=== PATIENT | male | born 1960 | race Caucasian/White ===

== ENCOUNTER → 2017-02-19 | Outpatient (REF) | payer BC | LOC: M SFHCCLAY 08:35 | PROVIDERS: ATTEND Family Medicine | DX: E78.5 Hyperlipidemia, unspecified (principal) ==

== ENCOUNTER → 2018-02-19 | Outpatient (REF) | payer BC ==
[2018-02-19 12:14] LABS: ALBUMIN 4.2 GM/DL (3.2-5.2); ALT/SGPT 41 U/L (12-78); BILIRUBIN,TOTAL 0.6 MG/DL (0.2-1.0); BLOOD UREA NITROGEN 10 MG/DL (7-18); CALCIUM LEVEL 9.1 MG/DL (8.5-10.1); CARBON DIOXIDE LEVEL 32 MEQ/L (21-32); CHLORIDE LEVEL 98 MEQ/L (98-107); CHOLESTEROL LEVEL 242 MG/DL (<200); GLOMERULAR FILTRATION RATE > 60.0 (>56); GLUCOSE, FASTING 89 MG/DL (70-100); HDL CHOLESTEROL 84 MG/DL (>40); LDL CHOLESTEROL 137 MG/DL (<100); NON-HDL-C 158 MG/DL; POTASSIUM SERUM 4.1 MEQ/L (3.5-5.1); SODIUM LEVEL 137 MEQ/L (136-145); TOTAL PROTEIN 7.9 GM/DL (6.4-8.2); TRIGLYCERIDES LEVEL 103 MG/DL (<150)
[2018-02-19 12:24] LABS: THYROID STIMULATING HORMONE 3.5 uIU/ML (0.358-3.740); THYROXINE (T4) 6.3 UG/DL (4.5-12.0); TOTAL T3 92.4 NG/DL (60.0-181.0)
== END ==
LOC: M SFHCCLAY 08:22
PROVIDERS: ATTEND Family Medicine
DX: E78.5 Hyperlipidemia, unspecified (principal); I48.1 Persistent atrial fibrillation

== ENCOUNTER 2018-05-29 08:05 | Outpatient (RCR) | payer BC ==
[2018-05-29] MEDS ORDERED: DRENAMIN PO (08:36)
[2018-05-29] MEDS ORDERED: CRES10TA32 PO (08:36)
[2018-05-29] MEDS ORDERED: CODCAP4 PO (08:36)
[2018-05-29] MEDS ORDERED: [UNRECOGNIZED DRUG - OTHER] PO (08:36)
[2018-05-29] MEDS ORDERED: [UNRECOGNIZED DRUG - OTHER] PO (08:36)
[2018-05-29] MEDS ORDERED: METO37.5 PO (08:36)
[2018-05-29] MEDS ORDERED: LEVO25TA5 PO (08:36)
[2018-05-29] MEDS ORDERED: PROB250C PO (08:36)
[2018-05-29] MEDS ORDERED: ELIQ5TAB PO (08:36)
[2018-05-29] MEDS ORDERED: RAMI1CAP21 PO (08:36)
[2018-05-29] MEDS ORDERED: ASPI81TA85 PO (08:36)
[2018-05-29] MEDS ORDERED: [UNRECOGNIZED DRUG - OTHER] PO (08:36)
[2018-05-29] MEDS ORDERED: CLAR10CA3 PO (08:36)
[2018-05-29] MEDS ORDERED: cataplex PO (08:36)
[2018-05-29] MEDS ORDERED: CO Q10CA PO (08:36)
--- NOTE | 2018-05-29 10:34 | CARECAPL ---
Assessment Account #s: Initial Assessment General Diagnoses: CHF (cardiomyopathy EF 25%) Date of event: May 01, 2018 Physician: RITO ALTAMIRANO MD Date Entered Program: May 29, 2018 Risk strat for cardiac event: High Exercise Date: May 29, 2018 Assessment: Initial Assessment Exercise Prescription Plan to build endurance through a monitored exercise program and to educate to reduce the risks of cardiac disease Modalities initiated: Treadmill (1.3/RPE 2 MTS1.99), Nustep (L2 mts 3.2 RPE 2.), Arm Aerometer (1.0 MTS 2.82 RPE 2), Dumbells (will add), Recumbent Bike (R1 mts 3.2 RPE 2.5) Frequency: 3 Duration (Minutes) 30-60 minutes total exercise a day.6-10 work intervals in minutes. as needed - rest intervals in minutes. Functional Capacity Goal Sustained Metabolic Equivalent of a task (MET) goal of 4.5-5.5 for 15-20 minut es. Intensity: 2-Slight Progression (METS) Increase by: .5 METS every: 2 sessions Angina with ex: No Target Heart Rate r+35-40 Resistance Training: Yes Hypertension: Yes Hypertension controlled with: Diet Resting 130/75 Peak Exercise BP 170/100 Meds see below Medications Scheduled Apixaban Base (Eliquis), 5 MG PO BID, (Reported) Aspirin (Aspir-81), 1 TAB PO DAILY, (Reported) Cod Liver Oil (Cod Liver Oil), 1 CAP PO DAILY, (Reported) Coenzyme Q10 (Co Q 10), 1 CAP PO DAILY, (Reported) Levothyroxine Sodium (Synthroid), 25 MCG PO DAILY, (Reported) Loratadine (Claritin), 1 CAP PO DAILY, (Reported) Metoprolol Tartrate (Metoprolol Tartrate), 25 MG PO BID, (Reported) Ramipril (Ramipril), 2.5 MG PO DAILY, (Reported) Rosuvastatin (Crestor), 10 MG PO DAILY, (Reported) Yeast (S. Boulardii)(S. Cerevi (Probiotic), 1 CAP PO DAILY, (Reported) [AF Beta], 1 TAB PO DAILY, (Reported) [Carbo G], 1 TAB PO DAILY, (Reported) [Drenamin], 1 TAB PO DAILY, (Reported) [Echenacea], 1 TAB PO DAILY, (Reported) [cataplex], 1 TAB PO DAILY, (Reported) Target Goals Individual exercise Rx (1) BP 140/90 or 130/80 if DM or CKD (1) Aerobic active 30+min 5 days per week (1) Nutrition Date: May 29, 2018 Assessment: Initial Assessment Med Change: No Diabetes Diabetes: No Weight Management Weight (lbs): 188.8 Height (inches): 71 Waist Circumference (Inches): 41 BMI: 26.2 Special Diet: other (dairy free, gluten free) Alcohol: none Diet Access Tool: Rate your plate Score: 57 Education Eating Healthy Target goal LDL-C<100 if triglycerides are >200 Non-HDL-C should be <130 (1) LDL-C<70 for high risk patients (4) HbA1c<7% (1) BMI<25 Waist cir<40in M/<35in F (1) Education Date: May 29, 2018 Assessment: Initial Assessment Knowledge Test Score: 7 Family Support: Yes Tobacco use: No Intervention Attended education classes: Yes Education: CAD, Risk factors, med compliance, cardiac A&P, Angina S/S, Sexuality Target Goals Complete cessation of tobacco use (1). Psychosocial Date: May 29, 2018 Assessment: Initial Assessment Psych Test (Initial/Discharge) Tool Used: CESD Score: 9 Intervention Physician Consult: No Physician Referral: No Stress Management Class: Yes Uses Stress Management Skills: Yes Education Education: Coping Techniques, S/S depression, Relaxation Techniques Target Goal Assess presence or absence of depression using a valid screening tool (1). Maximize coping skills (2). Positive support system (2). Fall Risk Assess: No Provider Assessment Session Number: 1 Provider Assessment: Proceed with rehab Shauna Bryan RN May 29, 2018 10:34
== END 2018-06-02 ==
LOC: M CR 08:05
PROVIDERS: ATTEND Internal Medicine Cardiovascular Disease
DX: I42.9 Cardiomyopathy, unspecified (principal)

== ENCOUNTER 2018-07-01 07:46 | Outpatient (RCR) | payer BC ==
--- NOTE | 2018-06-24 11:02 | CARECAPL ---
Assessment Account #s: Re-Assessment I General Diagnoses: CHF (cardiomyopathy EF <25%) Date of event: May 01, 2018 Physician: RITO ALTAMIRANO MD Allergies: Coded Allergies: No Known Allergies (Unverified , 06/24/18) Date Entered Program: May 29, 2018 Risk strat for cardiac event: High Exercise Date: Jun 24, 2018 Assessment: Re-Assessment I Exercise Prescription Plan to educate about cardiac disease and risk factors and to build endurance and strength through a monitored exercise program Modalities initiated: Treadmill (2.5/0 mts 2.91 rpe 3), Nustep (L3 mts 3.3 rpe 2.5), Arm Aerometer (2.0 mts 3.1 rpe 2.5), Dumbells, Recumbent Bike (r3 mts 3.8 rpe 3) Duration (Minutes) 30-60 minutes total exercise a day. 6-12 minutes- work intervals in minutes. as needed rest intervals in minutes. Functional Capacity Goal Sustained Metabolic Equivalent of a task (MET) goal of 4.5-5.5 for 15-20 minutes. Intensity: 3-Moderate Progression (METS) Increase by: .5 METS every: 2-3 sessions Angina with ex: No Target Heart Rate rest +35-40 betablocker therapy Resistance Training: Yes Weight (pounds): 3 Reps: 8-12 Medications Scheduled Apixaban (Eliquis), 5 MG PO BID, (Reported) Aspirin (Aspir 81), 1 TAB PO DAILY, (Reported) Cod Liver Oil (Cod Liver Oil), 1 CAP PO DAILY, (Reported) Levothyroxine Sodium (Levothyroxine Sodium), 25 MCG PO DAILY, (Reported) Loratadine (Claritin), 1 CAP PO DAILY, (Reported) Metoprolol Tartrate (Metoprolol Tartrate), 50 MG PO BID, (Reported) Ramipril (Ramipril), 2.5 MG PO DAILY, (Reported) Rosuvastatin Calcium (Crestor), 10 MG PO DAILY, (Reported) Saccharomyces Boulardii (Probiotic), 1 CAP PO DAILY, (Reported) Ubidecarenone (Co Q-10), 1 CAP PO DAILY, (Reported) [AF Beta], 1 TAB PO DAILY, (Reported) [Carbo G], 1 TAB PO DAILY, (Reported) [Drenamin], 1 TAB PO DAILY, (Reported) [Echenacea], 1 TAB PO DAILY, (Reported) [cataplex], 1 TAB PO DAILY, (Reported) Current BP 108/62 Med Change: Yes Intervention Home exercise: Type (walking, hand weights, join local gym) Resistance Training: Yes Education: Self pulse, Ex safety, S/S to report, Low NA diet, BP medication, RPE Scale, Equipment orientation, warm up/cool down, Understand BP, Physical Active Education Goals Met: Yes Target Goals Individual exercise Rx (1) BP 140/90 or 130/80 if DM or CKD (1) Aerobic active 30+min 5 days per week (1) Nutrition Date: Jun 24, 2018 Assessment: Re-Assessment I Med Change: No Diabetes Diabetes: No Monitor Blood Sugar at home: No Medication Change: No Current Weight (pounds): 188.8 Intervention Supervisor Die Casting Consult: Yes (will see eeo officer during 3 month program) Nurse/patient discussion: Yes Dietary Goals to maintain- on gluten free, dairy free diet Diet Class: Yes (will complete this program) Referral to Diabetes education: No Referral to lipid clinic: No Referral to weight mangement p: No Education Eating Healthy Education Goals Met: No Target goal LDL-C<100 if triglycerides are >200 Non-HDL-C should be <130 (1) LDL-C<70 for high risk patients (4) HbA1c<7% (1) BMI<25 Waist cir<40in M/<35in F (1) Education Date: Jun 24, 2018 Assessment: Re-Assessment I Family Support: No Tobacco use: No Tobacco Use Smokeless tobacco: No Intervention Referral to smoking cessation: No Individual education and couns: No Tobacco Adjunct: No Education class schedule given: Yes Attended education classes: Yes Education: CAD, Risk factors Education Goals Met: No Target Goals Complete cessation of tobacco use (1). Psychosocial Date: Jun 24, 2018 Assessment: Re-Assessment I Intervention Physician Consult: No Physician Referral: No Med Change: No Stress Management Class: Yes Uses Stress Management Skills: Yes Education Education: Coping Techniques, S/S depression, Relaxation Techniques Education Goals Met: No Target Goal Assess presence or absence of depression using a valid screening tool (1). Maximize coping skills (2). Positive support system (2). Provider Assessment Session Number: 7 Provider Assessment: No changes (absent 3 classes d/t need for medication change. AF not within parameter for exercise. Lopressor doubled by Dr Altamirano) Shauna Bryan RN Jun 24, 2018 11:02
[~2018-07-01 07:46] MED LIST: ASPI81TA85 PO; CLAR10CA3 PO; CO Q10CA PO; CODCAP4 PO; CRES10TA PO; DRENAMIN PO; ELIQ5TAB PO; LEVO25TA5 PO; METO37.5 PO; PROB250C PO; RAMI1CAP21 PO; [UNRECOGNIZED DRUG - OTHER] PO; [UNRECOGNIZED DRUG - OTHER] PO; [UNRECOGNIZED DRUG - OTHER] PO; cataplex PO
== END 2018-07-02 ==
LOC: M CR 07:46
PROVIDERS: ATTEND Internal Medicine Cardiovascular Disease
DX: I42.8 Other cardiomyopathies (principal)

== ENCOUNTER 2018-07-17 05:56 | Day surgery (SDC) | payer BC ==
[~2018-07-17] VITALS: Ht 180.3 cm; Wt 87.5 kg
[~2018-07-17 05:56] MED LIST changes: +AMIO200T37 PO
[2018-07-17] MEDS ORDERED: LIDOCAINE 1% MDV 20ML VIAL SQ PRN (06:00)
[2018-07-17] MEDS ORDERED: PROPOFOL 200 MG/20 ML VIAL As Ordered ONE (06:40)
[2018-07-17] MEDS ORDERED: LIDOCAINE 2% INJ 100 MG/5 ML SDV (FOR ANES.) As Ordered ONE (06:40)
[2018-07-17] MEDS ORDERED: ONDANSETRON 4MG/2ML VIAL (J2405) As Ordered ONE (06:42)
[2018-07-17] MEDS ORDERED: LR 1,000 ML IV ONE (07:00)
--- NOTE | 2018-07-17 08:54 | RO ---
DATE OF PROCEDURE: 07/17/2018 PREPROCEDURE DIAGNOSIS: Atrial fibrillation. POSTPROCEDURE DIAGNOSIS: Atrial fibrillation, mechanical cardioverted to a normal sinus rhythm with DC cardioversion. SURGEON: Dr. Michael Neely PLASTER WHITTLER: PROCEDURE: DC mechanical cardioversion. ANESTHESIA: [facility]. ESTIMATED BLOOD LOSS: None. Mr. Dayton Mathis is a 58-year-old male who was diagnosed with atrial fibrillation and this has been persistent even on AV blocking agent and antiarrhythmic drug with amiodarone. He also was found to have cardiomyopathy with a low left ventricular ejection fraction (LVEF) but no underlying CAD. He was brought in today for DC mechanical cardioversion, attempting to bring his heart rate back down to normal. This was discussed with him as well as his , and they were in agreement. All their questions were answered and he is aware about the complications such as cardiac arrest, cardiac arrhythmias, aspiration pneumonia, skin burn, and remotely . Propofol 120 mg IV was given by [facility] and also lidocaine was used. He was mechanically cardioverted with one shock of 200 joules using the defibrillator patches applied at the apex and the right upper chest. Prior to that, the rhythm was now synchronized. This led to resolution of his atrial fibrillation to a normal sinus rhythm. At the time dictation, patient was in sinus rhythm, alert and awake, in no acute distress. His vital signs are stable. Neurologic examination revealed no focal manifestation. His blood pressure at this present time is 132/67 with a pulse of 52, respirations 16 and his oxygen saturation is 97% on 2 liters nasal cannula. He tolerated the procedure very well, and there were no complications. Electrocardiogram (EKG) post hospitalization revealed normal sinus rhythm. done after the cardioversion, revealed normal sinus rhythm at 64 beats per minute, left axis deviation, left anterior damien block, and first degree AV block. Mr. Dayton Mathis is stable, post mechanical cardioversion of his atrial fibrillation. He will be monitored and discharged home later this morning. He will continue his current meds. He will followup with his primary, and he has an appointment to come back into the office in the near future. He will call the office if any concern or questions. BRIAN
[2018-07-17 09:25] VITALS: BP 142/73
--- NOTE | 2018-07-18 19:05 | ECGEPIP ---
Stationary ECG Study [facility] Test Date: 2018-07-17 Pat Name: ARJUN MONTENEGRO Department: Room: - Gender: M Senior Sustainability Consultant: Bessie Garcia : 1960 Requested By: RITO ALTAMIRANO Order Number: [id number] Reading MD: Roderick Booker Measurements Intervals [place] Rate: 70 P: 46 NE: 242 QRS: -25 QRSD: 114 T: 30 QT: 433 QTc: 468 Interpretive Statements SINUS RHYTHM WITH FIRST DEGREE AV BLOCK MODERATE INTRAVENTRICULAR CONDUCTION DELAY ST DEVIATION AND MODERATE T-WAVE ABNORMALITY, CONSIDER LATERAL ISCHEMIA NO PRIOR Electronically Signed On 07-18-2018 19:04:57 EDT by Roderick Booker
== END 2018-07-17 09:35 | disposition home or self-care (01) ==
LOC: M SDC 05:56
PROVIDERS: ATTEND Internal Medicine Cardiovascular Disease
DX: I48.1 Persistent atrial fibrillation (principal); I10 Essential (primary) hypertension; E78.5 Hyperlipidemia, unspecified; E03.9 Hypothyroidism, unspecified; F17.220 Nicotine dependence, chewing tobacco, uncomplicated; Z79.899 Other long term (current) drug therapy; Z79.82 Long term (current) use of aspirin; Z79.01 Long term (current) use of anticoagulants
CPT/HCPCS: 92960; 93005; J2405

== ENCOUNTER → 2018-08-02 | Outpatient (RCR) | payer BC ==
--- NOTE | 2018-07-15 16:32 | CARECAPL ---
Assessment Account #s: Re-Assessment II General Diagnoses: CHF (CARDIOMYOPATHY EF<25%) Date of event: May 01, 2018 Physician: RITO ALTAMIRANO MD Allergies: Coded Allergies: No Known Allergies (Unverified , 06/24/18) Date Entered Program: May 29, 2018 Risk strat for cardiac event: High Exercise Date: July 15, 2018 Assessment: Re-Assessment II Exercise Prescription Plan TO EDUCATE AND BUILD ENDURANCE THROUGH MONITORED EXERCISE Modalities initiated: Treadmill (METS=3.53/RPE=3), Nustep (METS=5.2/RPE=3.5), Arm Aerometer (METS=3.3/RPE=3), Dumbells (4#/RPE=3), Recumbent Bike (METS=4.1/RPE=3) Frequency: 3 Duration (Minutes) 30-60 minutes total exercise a day. 10-15 MIN work intervals in minutes. 5 MIN PRN rest intervals in minutes. Functional Capacity Goal Sustained Metabolic Equivalent of a task (MET) goal of 4.5-5.5 for 15-20 minutes. Intensity: 3-Moderate Progression (METS) Increase by: 0.5 METS every: 3-5 sessions TOLERATED Angina with ex: No Target Heart Rate RATE +35-40 BETA SOHEILA THERAPY Resistance Training: Yes Weight (pounds): 4 Reps: 12-15 Hypertension: Yes Hypertension controlled with: Medication Resting 132/80 Peak Exercise BP 160/90 Medications Scheduled Amiodarone HCl (Amiodarone Hydrochloride), 200 MG PO DAILY, (Reported) Apixaban (Eliquis), 5 MG PO BID, (Reported) Aspirin (Aspir 81), 1 TAB PO DAILY, (Reported) Cod Liver Oil (Cod Liver Oil), 1 CAP PO DAILY, (Reported) Levothyroxine Sodium (Levothyroxine Sodium), 25 MCG PO DAILY, (Reported) Loratadine (Claritin), 1 CAP PO DAILY, (Reported) Metoprolol Tartrate (Metoprolol Tartrate), 25 MG PO TID, (Reported) Ramipril (Ramipril), 2.5 MG PO DAILY, (Reported) Rosuvastatin Calcium (Crestor), 10 MG PO DAILY, (Reported) Saccharomyces Boulardii (Probiotic), 1 CAP PO DAILY, (Reported) Ubidecarenone (Co Q-10), 1 CAP PO DAILY, (Reported) [AF Beta], 1 TAB PO DAILY, (Reported) [Carbo G], 1 TAB PO DAILY, (Reported) [Drenamin], 1 TAB PO DAILY, (Reported) [Echenacea], 1 TAB PO DAILY, (Reported) [cataplex], 1 TAB PO DAILY, (Reported) Current BP 124/80 Intervention Resistance Training: Yes Education: Self pulse, Ex safety, S/S to report, Low NA diet, BP medication, RPE Scale, Equipment orientation, warm up/cool down, Understand BP, Physical Active Education Goals Met: No (PROGRESSING TOWARD GOALS) Target Goals Individual exercise Rx (1) BP 140/90 or 130/80 if DM or CKD (1) Aerobic active 30+min 5 days per week (1) Nutrition Date: July 15, 2018 Assessment: Re-Assessment II Lipid- med/supplement CRESTOR 10 MG DAILY Med Change: No Diabetes Diabetes: No Monitor Blood Sugar at home: No Medication Change: No Blood sugar in range: No Weight Management Weight (lbs): 190.2 Special Diet: low salt, low-fat (DAIRY AND GLUTEN FREE) Current Weight (pounds): 190.2 Intervention Insurance Sales Executive Consult: Yes (WILL SEE YARN WEIGHT AND STRENGTH TESTER DURING HIS 3 MONTH PROGRAM) Nurse/patient discussion: Yes Dietary Goals TO MAKE HEART HEALTHY, GLUTEN FREE, DAIRY FREE CHOICES Diet Class: Yes (WILL COMPLETE DURING PROGRAM) Referral to Diabetes education: No Referral to lipid clinic: No Referral to weight mangement p: No Education Eating Healthy Education Goals Met: No (PROGRESSING TOWARD GOALS) Target goal LDL-C<100 if triglycerides are >200 Non-HDL-C should be <130 (1) LDL-C<70 for high risk patients (4) HbA1c<7% (1) BMI<25 Waist cir<40in M/<35in F (1) Education Date: July 15, 2018 Assessment: Re-Assessment II Learning Barriers: ready Family Support: Yes Tobacco use: No Tobacco Use Smokeless tobacco: No Intervention Referral to smoking cessation: No Individual education and couns: No Tobacco Adjunct: No Education class schedule given: No Attended education classes: No Education: CAD, Risk factors, med compliance, cardiac A&P, Angina S/S, Sexuality Education Goals Met: No (PROGRESSING TOWARD GOALS) Target Goals Complete cessation of tobacco use (1). Psychosocial Date: July 15, 2018 Assessment: Re-Assessment II Intervention Physician Consult: No Physician Referral: No Med Change: No Stress Management Class: No Uses Stress Management Skills: Yes Education Education: Coping Techniques, S/S depression, Relaxation Techniques Education Goals Met: No Target Goal Assess presence or absence of depression using a valid screening tool (1). Maximize coping skills (2). Positive support system (2). Patient/Program Goal Preventative Medication: Yes Beta blockade, Yes Statin/OTR lipid Lowering, Yes Fall Risk Assess: Yes (NOT A FALL RISK) Provider Assessment Session Number: 15 Provider Assessment: Proceed with rehab (PATIENT IS PROGRESSING WELL WITH EXERCISE, SCHEDULED FOR CARDIOVERSION 07/17, ATTENDING WELL) Ferny Dunbar RN July 15, 2018 16:31
== END ==
LOC: M CR 07-03 09:46
PROVIDERS: ATTEND Internal Medicine Cardiovascular Disease
DX: I42.8 Other cardiomyopathies (principal)

== ENCOUNTER 2018-08-19 08:48 | Outpatient (RCR) | payer BC ==
--- NOTE | 2018-08-12 17:59 | CARECAPL ---
Assessment Account #s: Re-Assessment II (REASSESSMENT III) General Diagnoses: CHF (CARDIOMYOPATHY EF<25%) Date of event: May 01, 2018 Physician: RITO ALTAMIRANO MD Allergies: Coded Allergies: No Known Allergies (Unverified , 07/17/18) Date Entered Program: May 29, 2018 Risk strat for cardiac event: High Exercise Assessment: Re-Assessment II (REASSESSMENT III) Exercise Prescription Plan TO EDUCATE AND BUILD ENDURANCE THROUGH MONITORED EXERCISE Modalities initiated: Nustep (METS=7.0/RRPE=3.5), Dumbells (6#/RPE=3), Recumbent Bike (METS=4.4/RPE=3), Elliptimill (METS=2.9/RPE=4) Frequency: 3 Duration (Minutes) 30-60 minutes total exercise a day. 10-15 work intervals in minutes. 5 MIN PRN rest intervals in minutes. Functional Capacity Goal Sustained Metabolic Equivalent of a task (MET) goal of 4.5-5.5 for 15-20 minutes. Intensity: 3-Moderate Progression (METS) Increase by: METS every: sessions Angina with ex: No Target Heart Rate REST +35-40 BETA SOHEILA THERAPY Resistance Training: Yes Weight (pounds): 6 Reps: 12-15 Hypertension: Yes Hypertension controlled with: Medication Resting 130/78 Peak Exercise BP 160/80 Medications Scheduled Amiodarone HCl (Amiodarone Hydrochloride), 200 MG PO DAILY, (Reported) Apixaban (Eliquis), 5 MG PO BID, (Reported) Aspirin (Aspir 81), 1 TAB PO DAILY, (Reported) Cod Liver Oil (Cod Liver Oil), 1 CAP PO DAILY, (Reported) Levothyroxine Sodium (Levothyroxine Sodium), 25 MCG PO DAILY, (Reported) Loratadine (Claritin), 1 CAP PO DAILY, (Reported) Metoprolol Tartrate (Metoprolol Tartrate), 25 MG PO TID, (Reported) Ramipril (Ramipril), 2.5 MG PO DAILY, (Reported) Rosuvastatin Calcium (Crestor), 10 MG PO DAILY, (Reported) Saccharomyces Boulardii (Probiotic), 1 CAP PO DAILY, (Reported) Ubidecarenone (Co Q-10), 1 CAP PO DAILY, (Reported) [AF Beta], 1 TAB PO DAILY, (Reported) [Carbo G], 1 TAB PO DAILY, (Reported) [Drenamin], 1 TAB PO DAILY, (Reported) [Echenacea], 1 TAB PO DAILY, (Reported) [cataplex], 1 TAB PO DAILY, (Reported) Current BP 122/80 Med Change: No Intervention Home exercise: Type (WALKING, HOME EXERCISE EQUIPMENT), Frequency (3-5 DAYS PER WEEK), Duration (30-60 MIN) Resistance Training: Yes Education: Self pulse, Ex safety, S/S to report, Low NA diet, BP medication, RPE Scale, Equipment orientation, warm up/cool down, Understand BP, Physical Active Education Goals Met: No (PROGRESSING TOWARD GOALS) Target Goals Individual exercise Rx (1) BP 140/90 or 130/80 if DM or CKD (1) Aerobic active 30+min 5 days per week (1) Nutrition Date: Aug 12, 2018 Assessment: Re-Assessment II (REASSESSMENT III) Lipid- med/supplement CRESTOR Med Change: No Diabetes Diabetes: No Monitor Blood Sugar at home: No Medication Change: No Blood sugar in range: No Weight Management Weight (lbs): 192.3 Special Diet: low salt, low-fat (DAIRY AND GLUTEN FREE) Alcohol: special Current Weight (pounds): 192.3 Intervention Sound Truck Operator Consult: No Nurse/patient discussion: Yes Dietary Goals MAKE HEART HEALTHY CHOICES AND PORTION CONTROL Diet Class: Yes Referral to Diabetes education: No Referral to lipid clinic: No Referral to weight mangement p: No Education Eating Healthy Education Goals Met: No (PROGRESSING TOWARDS GOALS) Target goal LDL-C<100 if triglycerides are >200 Non-HDL-C should be <130 (1) LDL-C<70 for high risk patients (4) HbA1c<7% (1) BMI<25 Waist cir<40in M/<35in F (1) Education Date: Aug 12, 2018 Assessment: Re-Assessment II (REASSESSMENT III) Learning Barriers: ready Family Support: Yes Tobacco use: No Intervention Referral to smoking cessation: No Individual education and couns: No Tobacco Adjunct: No Education class schedule given: No Attended education classes: No Education: CAD, Risk factors, med compliance, cardiac A&P, Angina S/S, Sexuality Education Goals Met: No (PROGRESSING TOWARD GOALS) Target Goals Complete cessation of tobacco use (1). Psychosocial Date: Aug 12, 2018 Assessment: Re-Assessment II (REASSESSMENT III) Intervention Physician Consult: No Physician Referral: No Med Change: No Stress Management Class: No Uses Stress Management Skills: Yes Education Education: Coping Techniques, S/S depression, Relaxation Techniques Education Goals Met: No (PROGRESSING TOWARD GOALS) Target Goal Assess presence or absence of depression using a valid screening tool (1). Maximize coping skills (2). Positive support system (2). Patient/Program Goal Preventative Medication: Yes Aspirin, Yes Beta blockade, Yes Statin/OTR lipid Lowering Fall Risk Assess: Yes (NOT A FALL RISKS) Provider Assessment Session Number: 20 Provider Assessment: Proceed with rehab Ferny Dunbar RN Aug 12, 2018 17:59
--- NOTE | 2018-08-21 15:42 | CARECAPL ---
Assessment Account #s: Re-Assessment II (DISCHARGE) General Diagnoses: CHF (CARDIOMYOPATHY) Date of event: May 01, 2018 Physician: RITO ALTAMIRANO MD Allergies: Coded Allergies: No Known Allergies (Unverified , 07/17/18) Date Entered Program: May 29, 2018 Risk strat for cardiac event: High Exercise Date: Aug 21, 2018 Assessment: Followup/Discharge Exercise Prescription Plan TO EDUCATE AND BUILD ENDURANCE THROUGH MONITORED EXERCISE Modalities initiated: Nustep (METS=3.9/RPE=3), Arm Aerometer (METS=4.54/RPE=3), Dumbells (6#/RPE=3), Recumbent Bike (METS=4.4/RPE=3.0), Elliptimill (METS=3.2/RPE=3.5) Frequency: 3 Duration (Minutes) 30-60 minutes total exercise a day. 12-15 work intervals in minutes. 5 MIN PRN rest intervals in minutes. Functional Capacity Goal Sustained Metabolic Equivalent of a task (MET) goal of 4.5-5.5 for 15-20 minutes. Intensity: 3-Moderate Progression (METS) Increase by: METS every: sessions Angina with ex: No Resistance Training: Yes Weight (pounds): 6 Reps: 12-15 Hypertension: Yes Hypertension controlled with: Medication Resting 130/80 Peak Exercise BP 180/100 Medications Scheduled Amiodarone HCl (Amiodarone Hydrochloride), 200 MG PO DAILY, (Reported) Apixaban (Eliquis), 5 MG PO BID, (Reported) Aspirin (Aspir 81), 1 TAB PO DAILY, (Reported) Cod Liver Oil (Cod Liver Oil), 1 CAP PO DAILY, (Reported) Levothyroxine Sodium (Levothyroxine Sodium), 25 MCG PO DAILY, (Reported) Loratadine (Claritin), 1 CAP PO DAILY, (Reported) Metoprolol Tartrate (Metoprolol Tartrate), 25 MG PO TID, (Reported) Ramipril (Ramipril), 2.5 MG PO DAILY, (Reported) Rosuvastatin Calcium (Crestor), 10 MG PO DAILY, (Reported) Saccharomyces Boulardii (Probiotic), 1 CAP PO DAILY, (Reported) Ubidecarenone (Co Q-10), 1 CAP PO DAILY, (Reported) [AF Beta], 1 TAB PO DAILY, (Reported) [Carbo G], 1 TAB PO DAILY, (Reported) [Drenamin], 1 TAB PO DAILY, (Reported) [Echenacea], 1 TAB PO DAILY, (Reported) [cataplex], 1 TAB PO DAILY, (Reported) Current BP 138/76 Med Change: No Intervention Home exercise: Type (WALKING,HAND WEIGHTS,JOIN LOCAL GYM), Frequency (3-5 TIMES/WEEK), Duration (30-60 MINUTES) Resistance Training: Yes Education: Self pulse, Ex safety, S/S to report, Low NA diet, BP medication, RPE Scale, Equipment orientation, warm up/cool down, Understand BP, Physical Active Education Goals Met: Yes Target Goals Individual exercise Rx (1) BP 140/90 or 130/80 if DM or CKD (1) Aerobic active 30+min 5 days per week (1) Nutrition Date: Aug 21, 2018 Assessment: Followup/Discharge Lipid- med/supplement CRESTOR Med Change: No Diabetes Diabetes: No Monitor Blood Sugar at home: No Medication Change: No Weight Management Weight (lbs): 192.3 Special Diet: low salt, low-fat (GLUTEN FREE/DAIRY FREE) Alcohol: special Diet Access Tool: Rate your plate Score: 68 Current Weight (pounds): 192.3 Intervention 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 Nurse/patient discussion: Yes Dietary Goals TO MAKE HEART HEALTHY CHOICES Diet Class: Yes (DIGITAL MARKETING MANAGER MET WITH PATIENT DURING PROGRAM) Referral to Diabetes education: No Referral to lipid clinic: No Referral to weight mangement p: No Education Eating Healthy Education Goals Met: Yes Target goal LDL-C<100 if triglycerides are >200 Non-HDL-C should be <130 (1) LDL-C<70 for high risk patients (4) HbA1c<7% (1) BMI<25 Waist cir<40in M/<35in F (1) Education Date: Aug 21, 2018 Assessment: Followup/Discharge Learning Barriers: ready Knowledge Test Score: 9 Family Support: Yes Tobacco use: No Tobacco Use Smokeless tobacco: No Intervention Referral to smoking cessation: No Individual education and couns: No Tobacco Adjunct: No Education class schedule given: No Attended education classes: No Education: CAD, Risk factors, med compliance, cardiac A&P, Angina S/S, Sexuality Education Goals Met: Yes Target Goals Complete cessation of tobacco use (1). Psychosocial Date: Aug 21, 2018 Assessment: Followup/Discharge Psych Test (Initial/Discharge) Tool Used: CESD Score: 9 Intervention Physician Consult: No Physician Referral: No Med Change: No Stress Management Class: No Uses Stress Management Skills: Yes Education Education: Coping Techniques, S/S depression, Relaxation Techniques Education Goals Met: Yes Target Goal Assess presence or absence of depression using a valid screening tool (1). Maximize coping skills (2). Positive support system (2). Patient/Program Goal Preventative Medication: Yes Aspirin, Yes Beta blockade, Yes Statin/OTR lipid Lowering Fall Risk Assess: Yes (NOT A FALL RISK) Provider Assessment Session Number: 22 Provider Assessment: Proceed with rehab Ferny Dunbar RN Aug 21, 2018 15:42
== END 2018-09-01 ==
LOC: M CR 08:48
PROVIDERS: ATTEND Internal Medicine Cardiovascular Disease
DX: I42.9 Cardiomyopathy, unspecified (principal)

== ENCOUNTER → 2018-11-22 | Outpatient (CLI) | payer BC ==
[2018-11-27 14:18] LABS: METANEPHRINE PLASMA 58 pg/mL (0-62); NORMETANEPHRINE PLASMA 444 pg/mL (0-145)
== END ==
LOC: M LAB 08:11
PROVIDERS: ATTEND Internal Medicine Endocrinology, Diabetes & Metabolism
DX: R61 Generalized hyperhidrosis (principal)

== ENCOUNTER → 2018-12-06 | Outpatient (CLI) | payer BC ==
[2018-12-17 00:06] LABS: METANEPHRINE PLASMA 67 pg/mL (0-62); NORMETANEPHRINE PLASMA 472 pg/mL (0-145)
== END ==
LOC: M LAB 07:55
PROVIDERS: ATTEND Internal Medicine Endocrinology, Diabetes & Metabolism
DX: R61 Generalized hyperhidrosis (principal)

== ENCOUNTER → 2019-01-07 | Outpatient (REF) | payer BC ==
[~2019-01-07] MED LIST changes: -CODCAP4 PO; +CODCAP5 PO
[2019-01-07 17:30] LABS: BLOOD UREA NITROGEN 14 MG/DL (7-18); CALCIUM LEVEL 9.4 MG/DL (8.5-10.1); CARBON DIOXIDE LEVEL 27 MEQ/L (21-32); CHLORIDE LEVEL 102 MEQ/L (98-107); CREATININE FOR GFR 1.06 MG/DL (0.70-1.30); GLOMERULAR FILTRATION RATE > 60.0 (>56); GLUCOSE, FASTING 89 MG/DL (70-100); POTASSIUM SERUM 4.5 MEQ/L (3.5-5.1); SODIUM LEVEL 137 MEQ/L (136-145); THYROXINE (T4) 10.7 UG/DL (4.5-12.0)
[2019-01-08 09:34] LABS: THYROID PEROXIDASE ANTIBODY < 28.0 U/ML (<60.0)
== END ==
LOC: M LABDRAW1 15:51
PROVIDERS: ATTEND Internal Medicine Endocrinology, Diabetes & Metabolism
DX: R61 Generalized hyperhidrosis (principal); E03.9 Hypothyroidism, unspecified

== ENCOUNTER → 2019-03-26 | Outpatient (CLI) | payer BC ==
--- NOTE | 2019-03-26 16:10 | REP ---
Left ankle series: Four views. History: Injury. Findings: Four views of the left ankle demonstrate diffuse soft tissue swelling. There is an obliquely oriented fracture through the distal fibular metaphysis with slight posterior displacement. No visible tibial fracture. Ankle mortise appears intact. There is plantar calcaneal spurring and mild Achilles calcaneal spurring. Impression: Moderate diffuse swelling. Oblique fracture distal fibular metaphysis with slight posterior displacement. Electronically Signed by Lai Alvarez MD 03/26/2019 04:02 P
== END ==
LOC: M CLY 15:23
PROVIDERS: ATTEND Family Medicine
DX: S82.232A Displaced oblique fracture of shaft of left tibia, initial encounter for closed fracture (principal); M77.32 Calcaneal spur, left foot

== ENCOUNTER → 2019-05-16 | Outpatient (REF) | payer BC ==
[2019-05-16 12:34] LABS: BLOOD UREA NITROGEN 9 MG/DL (7-18); CARBON DIOXIDE LEVEL 30 MEQ/L (21-32); CHLORIDE LEVEL 102 MEQ/L (98-107); CREATININE FOR GFR 0.97 MG/DL (0.70-1.30); GLOMERULAR FILTRATION RATE > 60.0 (>56); GLUCOSE, FASTING 88 MG/DL (70-100); POTASSIUM SERUM 4.3 MEQ/L (3.5-5.1); SODIUM LEVEL 137 MEQ/L (136-145)
== END ==
LOC: M LABDRAWC 11:29
PROVIDERS: ATTEND Internal Medicine Cardiovascular Disease
DX: I48.19 Other persistent atrial fibrillation (principal)

== ENCOUNTER → 2019-05-16 | Outpatient (REF) | payer BC ==
[2019-05-16 12:44] LABS: FREE T4 1.62 NG/DL (0.76-1.46); THYROID STIMULATING HORMONE 1.92 uIU/ML (0.358-3.740)
== END ==
LOC: M LABDRAWC 11:19
PROVIDERS: ATTEND Internal Medicine Endocrinology, Diabetes & Metabolism
DX: E03.9 Hypothyroidism, unspecified (principal)

== ENCOUNTER → 2019-06-10 | Outpatient (REF) | payer BC ==
[2019-06-10 12:29] LABS: BLOOD UREA NITROGEN 8 MG/DL (7-18); CALCIUM LEVEL 9.3 MG/DL (8.5-10.1); CARBON DIOXIDE LEVEL 30 MEQ/L (21-32); CHLORIDE LEVEL 103 MEQ/L (98-107); CREATININE FOR GFR 1.03 MG/DL (0.70-1.30); GLOMERULAR FILTRATION RATE > 60.0 (>56); GLUCOSE, FASTING 97 MG/DL (70-100); NT-PRO BNP 311 PG/ML (<125); POTASSIUM SERUM 4.2 MEQ/L (3.5-5.1); SODIUM LEVEL 137 MEQ/L (136-145)
== END ==
LOC: M LABDRAWC 11:16
PROVIDERS: ATTEND Internal Medicine Cardiovascular Disease
DX: I10 Essential (primary) hypertension (principal); I42.9 Cardiomyopathy, unspecified

== ENCOUNTER → 2019-06-10 | Outpatient (REF) | payer BC ==
[2019-06-10 12:33] LABS: FREE T4 1.29 NG/DL (0.76-1.46); THYROID STIMULATING HORMONE 2.3 uIU/ML (0.358-3.740)
== END ==
LOC: M LABDRAWC 11:18
PROVIDERS: ATTEND Internal Medicine Endocrinology, Diabetes & Metabolism
DX: E03.9 Hypothyroidism, unspecified (principal)

== ENCOUNTER → 2019-08-11 | Outpatient (REF) | payer BC ==
[2019-08-11 13:29] LABS: BLOOD UREA NITROGEN 8 MG/DL (7-18); CALCIUM LEVEL 9.1 MG/DL (8.5-10.1); CARBON DIOXIDE LEVEL 28 MEQ/L (21-32); CHLORIDE LEVEL 101 MEQ/L (98-107); CREATININE FOR GFR 0.93 MG/DL (0.70-1.30); GLOMERULAR FILTRATION RATE > 60.0 (>56); GLUCOSE, FASTING 90 MG/DL (70-100); POTASSIUM SERUM 4.2 MEQ/L (3.5-5.1); SODIUM LEVEL 137 MEQ/L (136-145)
== END ==
LOC: M LABDRAWC 11:13
PROVIDERS: ATTEND Internal Medicine Cardiovascular Disease
DX: I48.11 Longstanding persistent atrial fibrillation (principal)

== ENCOUNTER → 2019-09-23 | Outpatient (REF) | payer BC ==
[~2019-09-23] MED LIST changes: -ASPI81TA85 PO; +ASPI81TA86 PO
[2019-09-23 13:48] LABS: FREE T4 1.22 NG/DL (0.76-1.46); THYROID STIMULATING HORMONE 1.19 uIU/ML (0.358-3.740); TOTAL T3 83.4 NG/DL (60.0-181.0)
== END ==
LOC: M LABDRAWC 12:59
PROVIDERS: ATTEND Internal Medicine Endocrinology, Diabetes & Metabolism
DX: E03.9 Hypothyroidism, unspecified (principal)

== ENCOUNTER → 2020-02-23 | Outpatient (REF) | payer BC ==
[2020-02-23 12:06] LABS: BASO # 0.1 10^3/uL (0.0-0.2); BASO % 1.4 % (0.0-1.0); EOS # 0.3 10^3/uL (0.0-0.5); EOS % 4.2 % (0.0-3.0); HEMATOCRIT 45.9 % (42.0-52.0); HEMOGLOBIN 14.8 g/dl (13.5-17.5); LYMPH # 1.3 10^3/uL (1.5-5.0); LYMPH % 18.3 % (24.0-44.0); MEAN CORPUSCULAR HEMOGLOBIN 31.9 pg (27.0-33.0); MEAN CORPUSCULAR HGB CONC 32.2 g/dl (32.0-36.5); MEAN CORPUSCULAR VOLUME 98.9 fl (80.0-96.0); MONO # 0.8 10^3/uL (0.0-0.8); MONO % 11.6 % (0.0-5.0); NEUTROPHILS # 4.4 10^3/uL (1.5-8.5); NEUTROPHILS % 63.6 % (36.0-66.0); PLATELET COUNT, AUTOMATED 224 10^3/uL (150-450); RED BLOOD COUNT 4.64 10^6/uL (4.30-6.10)
[2020-02-23 12:44] LABS: ALBUMIN 4.1 GM/DL (3.2-5.2); ALT/SGPT 56 U/L (12-78); BILIRUBIN,TOTAL 0.5 MG/DL (0.2-1.0); BLOOD UREA NITROGEN 9 MG/DL (7-18); CALCIUM LEVEL 10.1 MG/DL (8.5-10.1); CARBON DIOXIDE LEVEL 32 MEQ/L (21-32); CHLORIDE LEVEL 101 MEQ/L (98-107); CHOLESTEROL LEVEL 228 MG/DL (<200); CHOLESTEROL RISK RATIO 3.507 (<5); CREATININE FOR GFR 0.96 MG/DL (0.70-1.30); GLOMERULAR FILTRATION RATE > 60.0 (>56); GLUCOSE, FASTING 111 MG/DL (70-100); HDL CHOLESTEROL 65 MG/DL (>40); LDL CHOLESTEROL 141 MG/DL (<100); NON-HDL-C 163 MG/DL; POTASSIUM SERUM 4.5 MEQ/L (3.5-5.1); SODIUM LEVEL 138 MEQ/L (136-145); TRIGLYCERIDES LEVEL 112 MG/DL (<150)
== END ==
LOC: M SFHCCLAY 08:52
PROVIDERS: ATTEND Family Medicine
DX: E03.9 Hypothyroidism, unspecified (principal); E78.5 Hyperlipidemia, unspecified

== ENCOUNTER → 2020-06-17 | Outpatient (REF) | payer BC ==
[2020-06-17 15:57] LABS: BLOOD UREA NITROGEN 8 MG/DL (7-18); CARBON DIOXIDE LEVEL 30 MEQ/L (21-32); CHLORIDE LEVEL 104 MEQ/L (98-107); CREATININE FOR GFR 0.89 MG/DL (0.70-1.30); GLOMERULAR FILTRATION RATE > 60.0 (>56); GLUCOSE, FASTING 100 MG/DL (70-100); POTASSIUM SERUM 3.8 MEQ/L (3.5-5.1); SODIUM LEVEL 140 MEQ/L (136-145)
[2020-06-17 15:58] LABS: ALBUMIN 3.8 GM/DL (3.2-5.2); ALT/SGPT 46 U/L (12-78); BILIRUBIN,TOTAL 0.4 MG/DL (0.2-1.0); CALCIUM LEVEL 9.1 MG/DL (8.5-10.1); CHOLESTEROL LEVEL 193 MG/DL (<200); CHOLESTEROL RISK RATIO 3.163 (<5); DIGOXIN LEVEL 0.5 NG/ML (0.5-2.0); HDL CHOLESTEROL 61 MG/DL (>40); LDL CHOLESTEROL 104 MG/DL (<100); NON-HDL-C 132 MG/DL; TOTAL PROTEIN 7.2 GM/DL (6.4-8.2); TRIGLYCERIDES LEVEL 141 MG/DL (<150)
== END ==
LOC: M LABDRAWC 11:33
PROVIDERS: ATTEND Internal Medicine Cardiovascular Disease
DX: I42.9 Cardiomyopathy, unspecified (principal); E78.5 Hyperlipidemia, unspecified; I10 Essential (primary) hypertension; I48.19 Other persistent atrial fibrillation

== ENCOUNTER → 2020-10-07 | Outpatient (REF) | payer BC ==
[2020-10-07 12:44] LABS: FREE T4 1.27 NG/DL (0.76-1.46); THYROID STIMULATING HORMONE 1.46 uIU/ML (0.358-3.740)
== END ==
LOC: M LABDRAWC 11:27
PROVIDERS: ATTEND Internal Medicine Endocrinology, Diabetes & Metabolism
DX: E03.9 Hypothyroidism, unspecified (principal)

== ENCOUNTER → 2021-01-04 | Outpatient (REF) | payer BC | LOC: M LAB REF 13:53 | PROVIDERS: ATTEND Physician Assistant | DX: C44.320 Squamous cell carcinoma of skin of unspecified parts of face (principal) ==

== ENCOUNTER → 2021-01-11 | Outpatient (REF) | payer BC ==
[2021-01-11 13:16] LABS: ALBUMIN 3.8 GM/DL (3.2-5.2); ALT/SGPT 46 U/L (12-78); BILIRUBIN,TOTAL 0.4 MG/DL (0.2-1.0); BLOOD UREA NITROGEN 9 MG/DL (7-18); CALCIUM LEVEL 9.7 MG/DL (8.5-10.1); CARBON DIOXIDE LEVEL 30 MEQ/L (21-32); CHLORIDE LEVEL 102 MEQ/L (98-107); CREATININE FOR GFR 0.92 MG/DL (0.70-1.30); DIGOXIN LEVEL 0.5 NG/ML (0.5-2.0); GLOMERULAR FILTRATION RATE > 60.0 (>56); GLUCOSE, FASTING 118 MG/DL (70-100); POTASSIUM SERUM 3.8 MEQ/L (3.5-5.1); SODIUM LEVEL 140 MEQ/L (136-145); TOTAL PROTEIN 7.4 GM/DL (6.4-8.2)
== END ==
LOC: M LABDRAWC 11:17
PROVIDERS: ATTEND Internal Medicine Cardiovascular Disease
DX: I48.19 Other persistent atrial fibrillation (principal); I42.9 Cardiomyopathy, unspecified; I10 Essential (primary) hypertension

== ENCOUNTER → 2021-06-02 | Outpatient (REF) | payer BC ==
[2021-06-02 12:12] LABS: FREE T4 1.21 NG/DL (0.76-1.46)
[2021-06-02 14:01] LABS: THYROID STIMULATING HORMONE 1.08 uIU/ML (0.358-3.740)
== END ==
LOC: M LABDRAWC 11:10
PROVIDERS: ATTEND Internal Medicine Endocrinology, Diabetes & Metabolism
DX: E03.9 Hypothyroidism, unspecified (principal)

== ENCOUNTER → 2022-03-13 | Outpatient (REF) | payer BC ==
[2022-03-13 11:56] LABS: BASO # 0.1 10^3/uL (0.0-0.2); BASO % 1.4 % (0.0-1.0); EOS # 0.3 10^3/uL (0.0-0.5); HEMATOCRIT 48.6 % (42.0-52.0); HEMOGLOBIN 16.3 g/dl (13.5-17.5); LYMPH # 1.2 10^3/uL (1.5-5.0); MEAN CORPUSCULAR HEMOGLOBIN 33.4 pg (27.0-33.0); MEAN CORPUSCULAR HGB CONC 33.5 g/dl (32.0-36.5); MEAN CORPUSCULAR VOLUME 99.6 fl (80.0-96.0); MONO % 12.9 % (2.0-8.0); NEUTROPHILS # 5.2 10^3/uL (1.5-8.5); NEUTROPHILS % 66.1 % (36.0-66.0); PLATELET COUNT, AUTOMATED 249 10^3/uL (150-450); RED BLOOD COUNT 4.88 10^6/uL (4.30-6.10); WHITE BLOOD COUNT 7.8 10^3/uL (4.0-10.0)
[2022-03-13 12:28] LABS: ALBUMIN 3.8 G/DL (3.2-5.2); ALKALINE PHOSPHATASE 69 U/L (46-116); ALT/SGPT 45 U/L (7.0-40); AST/SGOT 45 U/L (<34); BILIRUBIN,TOTAL 0.6 MG/DL (0.3-1.2); BLOOD UREA NITROGEN 14 MG/DL (9-23); CALCIUM LEVEL 9.7 MG/DL (8.5-10.1); CARBON DIOXIDE LEVEL 31 MMOL/L (20-31); CHLORIDE LEVEL 100 MMOL/L (98-107); CHOLESTEROL LEVEL 318 MG/DL (<200); CREATININE FOR GFR 0.83 MG/DL (0.70-1.30); DIGOXIN LEVEL 0.5 NG/ML (0.8-2.0); FREE T4 1.33 NG/DL (0.89-1.76); GLOMERULAR FILTRATION RATE > 60.0 (>56); GLUCOSE, FASTING 92 MG/DL (60-100); HDL CHOLESTEROL 63.5 MG/DL (>40); LDL CHOLESTEROL 220.7 MG/DL (<100); NON-HDL-C 255 MG/DL; POTASSIUM SERUM 4.5 MMOL/L (3.5-5.1); SODIUM LEVEL 138 MMOL/L (136-145); TOTAL PROTEIN 7.3 G/DL (5.7-8.2); TRIGLYCERIDES LEVEL 169 MG/DL (<150)
[2022-03-13 12:29] LABS: THYROID STIMULATING HORMONE 1.499 uIU/ML (0.55-4.78); TOTAL T3 84.6 NG/DL (60.0-181.0)
== END ==
LOC: M SFHCCLAY 09:01
PROVIDERS: ATTEND Family Medicine
DX: I48.19 Other persistent atrial fibrillation (principal); E78.5 Hyperlipidemia, unspecified; E03.9 Hypothyroidism, unspecified; Z12.5 Encounter for screening for malignant neoplasm of prostate
CPT/HCPCS: 80053; 80061; 80162; 84439; 84443; 84480; 85025; G0103

== ENCOUNTER → 2022-04-18 | Outpatient (REF) | LOC: M PLAIMG 12:28 | PROVIDERS: ATTEND Internal Medicine | DX: R52 Pain, unspecified (principal) ==

== ENCOUNTER → 2022-06-26 | Outpatient (CLI) | payer BC | LOC: M CLY 09:40 | PROVIDERS: ATTEND Family Medicine | DX: R05.2 Subacute cough (principal) ==

== ENCOUNTER → 2023-03-13 | Outpatient (REF) | payer BC ==
[2023-03-13 12:11] LABS: BASO # 0.1 10^3/uL (0.0-0.2); BASO % 2.1 % (0.0-1.0); EOS # 0.4 10^3/uL (0.0-0.5); EOS % 6.5 % (0.0-3.0); HEMATOCRIT 45.9 % (42.0-52.0); HEMOGLOBIN 15.7 g/dl (13.5-17.5); LYMPH # 1.5 10^3/uL (1.5-5.0); LYMPH % 22.9 % (24.0-44.0); MEAN CORPUSCULAR HEMOGLOBIN 34.1 pg (27.0-33.0); MEAN CORPUSCULAR HGB CONC 34.2 g/dl (32.0-36.5); MEAN CORPUSCULAR VOLUME 99.6 fl (80.0-96.0); MONO # 0.9 10^3/uL (0.0-0.8); MONO % 12.8 % (2.0-8.0); NEUTROPHILS # 3.7 10^3/uL (1.5-8.5); NEUTROPHILS % 54.7 % (36.0-66.0); PLATELET COUNT, AUTOMATED 244 10^3/uL (150-450); RED BLOOD COUNT 4.61 10^6/uL (4.30-6.10); WHITE BLOOD COUNT 6.7 10^3/uL (4.0-10.0)
[2023-03-13 12:13] LABS: ALBUMIN 3.9 G/DL (3.2-5.2); ALKALINE PHOSPHATASE 55 U/L (46-116); ALT/SGPT 35 U/L (7.0-40); AST/SGOT 35 U/L (<34); BILIRUBIN,TOTAL 0.4 MG/DL (0.3-1.2); BLOOD UREA NITROGEN 11 MG/DL (9-23); CALCIUM LEVEL 9.7 MG/DL (8.3-10.6); CARBON DIOXIDE LEVEL 34 MMOL/L (20-31); CHLORIDE LEVEL 104 MMOL/L (98-107); CHOLESTEROL LEVEL 217 MG/DL (<200); CHOLESTEROL RISK RATIO 2.85 (<5); CREATININE FOR GFR 0.85 MG/DL (0.70-1.30); DIGOXIN LEVEL 0.7 NG/ML (0.8-2.0); GLOMERULAR FILTRATION RATE > 60.0 (>49); GLUCOSE, FASTING 94 MG/DL (74-106); HDL CHOLESTEROL 75.9 MG/DL (>40); LDL CHOLESTEROL 106.5 MG/DL (<100); NON-HDL-C 141.1 MG/DL; POTASSIUM SERUM 4.8 MMOL/L (3.5-5.1); SODIUM LEVEL 141 MMOL/L (136-145); TOTAL PROTEIN 7.4 G/DL (5.7-8.2); TRIGLYCERIDES LEVEL 173 MG/DL (<150)
[2023-03-13 12:14] LABS: THYROID STIMULATING HORMONE 1.807 uIU/ML (0.55-4.78)
[2023-03-13 12:15] LABS: FREE T4 1.21 NG/DL (0.89-1.76)
[2023-03-13 12:17] LABS: TOTAL T3 94.4 NG/DL (60.0-181.0)
== END ==
LOC: M SFHCCLAY 08:38
PROVIDERS: ATTEND Family Medicine
DX: E78.5 Hyperlipidemia, unspecified (principal); I48.19 Other persistent atrial fibrillation; E03.9 Hypothyroidism, unspecified

== ENCOUNTER → 2023-10-04 | Outpatient (CLI) | payer MEDICARE ==
[~2023-10-04] MED LIST changes: +COD1CAPS3 PO; -CODCAP5 PO; +RAMI1.258 PO; -RAMI1CAP21 PO
[2023-10-04 08:28] LABS: FREE T4 1.38 NG/DL (0.89-1.76); THYROID STIMULATING HORMONE 3.286 uIU/ML (0.55-4.78)
[2023-10-08 17:10] LABS: VANILLYLMANDELIC ACID,URINE 1.8 mg/L (Undefined); VANILLYLMANDELIC ACID,URINE 24 3.6 mg/24 hr (0.0-7.5)
== END ==
LOC: M LAB 06:24
PROVIDERS: ATTEND Internal Medicine Cardiovascular Disease
DX: R23.2 Flushing (principal); R00.0 Tachycardia, unspecified; R06.00 Dyspnea, unspecified; R06.89 Other abnormalities of breathing

== ENCOUNTER → 2023-12-26 | Outpatient (CLI) | payer MEDICARE ==
[~2023-12-26] MED LIST changes: +ISOVUE-370 76% 100ML VIAL ONE
== END ==
LOC: M PLAIMG 09:56
PROVIDERS: ATTEND Internal Medicine Cardiovascular Disease
DX: R42 Dizziness and giddiness (principal); I48.91 Unspecified atrial fibrillation; R06.09 Other forms of dyspnea
CPT/HCPCS: 70496; 70498; Q9967